=== PATIENT | male | born 1975 | race Hispanic/Latino ===

== ENCOUNTER 2021-06-01 05:37 | Emergency (ER) | payer SELFPAY | END 2021-06-01 07:50 | disposition home or self-care (01) | LOC: CSHERS 05:37 | DX: S16.1XXA Strain of muscle, fascia and tendon at neck level, initial encounter (principal); S00.33XA Contusion of nose, initial encounter; F10.129 Alcohol abuse with intoxication, unspecified; W19.XXXA Unspecified fall, initial encounter | CPT/HCPCS: 36415; 70450; 72125; 80307; 93005; 93010 ==